=== PATIENT | female | born 1950 | race Caucasian/White ===

== ENCOUNTER → 2017-04-19 | Outpatient (CLI) | payer MEDICARE ==
[~2017-04-19] MED LIST: LISI40TA PO; SIMV40TA4 PO
--- NOTE | 2017-04-20 11:26 | Diagnostic Imaging Report ---
Bilateral screening mammogram 2D views with tomosynthesis The current study was also evaluated with a Computer Aided Detection (CAD) system. INDICATION: Screening. No current complaints stated on the questionnaire. COMPARISON: 04/13/16 FINDINGS: The breasts are composed of heterogenously dense parenchyma which may decrease mammographic sensitivity. Benign-appearing calcifications are seen. Allowing for technique and positional differences, no suspicious change is seen. IMPRESSION: No significant change. ACR BI-RADS Category 2: Benign findings. Result letter will be mailed to the patient. Note: At least 10% of breast cancer is not imaged by mammography. Dictated by: Dictated on workstation # [id number]
== END ==
LOC: RAD 09:23
PROVIDERS: ATTEND Family Medicine
DX: Z12.31 Encounter for screening mammogram for malignant neoplasm of breast (principal)
CPT/HCPCS: 77067

== ENCOUNTER → 2018-05-24 | Outpatient (CLI) | payer MEDICARE, OTHER ==
--- NOTE | 2018-05-24 14:31 | Diagnostic Imaging Report ---
INDICATION: Routine screening. COMPARISON: 04/19/2017 and 04/13/2016. TECHNIQUE: 2D and 3D bilateral screening mammography was performed with CAD. FINDINGS: Both breasts are heterogeneously dense, limiting the sensitivity of mammography. The parenchymal pattern appears stable. No mass or malignant appearing microcalcifications are seen. There are benign calcifications present. The axillae are unremarkable. IMPRESSION: No mammographic features suspicious for malignancy are identified. ACR BI-RADS Category 2: Benign findings. Result letter will be mailed to the patient. Note: At least 10% of breast cancer is not imaged by mammography. Dictated by: Dictated on workstation # [id number]
== END ==
LOC: RAD 09:57
PROVIDERS: ATTEND Family Medicine
DX: Z12.31 Encounter for screening mammogram for malignant neoplasm of breast (principal)
CPT/HCPCS: 77067

== ENCOUNTER → 2018-05-25 | Outpatient (CLI) | payer MEDICARE, OTHER ==
--- NOTE | 2018-05-25 11:45 | Diagnostic Imaging Report ---
INDICATION: Screening for osteoporosis. No prior studies are available for comparison. Bone mineral analysis of the lumbar spine and both hips was performed. FINDINGS: Bone mineral density of lumbar spine L2-L4 is 0.789 with a T score -3.4. Bone mineral density of left femoral neck is 0.759 with T score -2.0. Bone mineral density of right femoral neck is 0.736 with T score -2.2. 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 Dictated by: Dictated on workstation # [id number]
== END ==
LOC: RAD 09:03
PROVIDERS: ATTEND Family Medicine
DX: Z13.820 Encounter for screening for osteoporosis (principal); M81.0 Age-related osteoporosis without current pathological fracture; M85.89 Other specified disorders of bone density and structure, multiple sites; Z78.0 Asymptomatic menopausal state
CPT/HCPCS: 77080

== ENCOUNTER → 2021-09-07 | Outpatient (CLI) | payer MEDICARE, OTHER ==
--- NOTE | 2021-09-07 12:16 | Diagnostic Imaging Report ---
PROCEDURE: CT urinary tract, rule out kidney stone. TECHNIQUE: Multiple contiguous axial images were obtained through the abdomen and pelvis without the use of intravenous contrast. Auto Exposure Controls were utilized during the CT exam to meet ALARA standards for radiation dose reduction. INDICATION: Right flank pain and hematuria. No prior studies are available for comparison. The lung bases are clear. The liver is unremarkable. There is a stone within the gallbladder. No biliary duct dilatation is seen. The pancreas and spleen are unremarkable. No adrenal mass is detected. There appears to be a punctate nonobstructing calculus in the left kidney. No left-sided hydronephrosis is seen. A right kidney demonstrates moderate hydroureteronephrosis. The dilated right ureter is traced into the pelvis where there is a tiny calculus, 3 mm in size projected at the right, the right aspect of the urinary bladder. This is likely at the UVJ or just passed into the bladder. No other urinary tract calculi are seen. Aorta is nonaneurysmal. Bowel loops are normal caliber. Small fat-containing umbilical hernia. No free fluid or fluid collection is seen. The uterus is unremarkable. IMPRESSION: 1. Nonobstructing left-sided nephrolithiasis. In addition, there is a 3 mm calculus at the right UVJ or just entering the urinary bladder producing moderate hydroureteronephrosis. 2. Cholelithiasis. Dictated by: Dictated on workstation # [id number]
== END ==
LOC: RAD 11:28
PROVIDERS: ATTEND Family Medicine
DX: K80.20 Calculus of gallbladder without cholecystitis without obstruction (principal); N20.0 Calculus of kidney; N13.30 Unspecified hydronephrosis
CPT/HCPCS: 74176

== ENCOUNTER → 2021-09-08 | Outpatient (CLI) | payer MEDICARE, OTHER ==
--- NOTE | 2021-09-08 14:25 | Diagnostic Imaging Report ---
EXAMINATION: Abdomen 1 view HISTORY: RT URETERAL STONE COMPARISON: CT 09/07/2021 FINDINGS: There is a moderate amount of gas and stool throughout the colon. There are dilated loops of bowel measuring up to 3.5 cm. Right upper quadrant gallstone is present. There is a 0.3 cm opacity within the right pelvis which may represent the previously seen obstructing calculus. The lung bases are clear. The osseous structures are intact. IMPRESSION: 1. A 0.3 cm radiopacity within the right pelvis which may represent the previously seen obstructing calculus. 2. Mildly dilated loops of small bowel in the midabdomen which can be seen with partial obstruction or ileus in the appropriate clinical setting. Dictated by: Dictated on workstation # [id number]
== END ==
LOC: RAD 13:03
PROVIDERS: ATTEND Urology
DX: N20.1 Calculus of ureter (principal)
CPT/HCPCS: 74018

== ENCOUNTER → 2021-09-21 | Outpatient (CLI) | payer MEDICARE, OTHER ==
--- NOTE | 2021-09-21 12:15 | Diagnostic Imaging Report ---
INDICATION: Routine screening. Comparison is made prior mammogram from 05/24/2018 and 04/19/2017. 2-D and 3-D bilateral screening mammography was performed with CAD. Both breasts are heterogeneously dense, limiting the sensitivity of mammography. No mass or malignant-appearing microcalcifications are seen. There are benign calcifications in both breasts. Axillae are unremarkable. IMPRESSION: No mammographic features suspicious for malignancy are identified. BI-RADS Category 2 ACR BI-RADS Category 2: Benign findings. Result letter will be mailed to the patient. Note: At least 10% of breast cancer is not imaged by mammography. Dictated by: Dictated on workstation # [id number]
== END ==
LOC: RAD 09-08 10:00
PROVIDERS: ATTEND Family Medicine
DX: Z12.31 Encounter for screening mammogram for malignant neoplasm of breast (principal)
CPT/HCPCS: 77063; 77067